=== PATIENT | male | born 1955 | race Caucasian/White ===

== ENCOUNTER → 2017-10-23 08:33 | Outpatient (REF) | payer BC, SELFPAY ==
[2017-10-23 21:32] LABS: ALT 38 U/L (12-78); AST 23 U/L (15-37); Albumin 4.2 g/dL (3.4-5.0); Alkaline Phosphatase 98 U/L (46-116); Anion Gap 11.5 mmol/L (3-11); BUN 20 mg/dL (7-18); Bilirubin, Total 1.2 mg/dL (0.2-1.0); CO2 25.5 mmol/L (21.0-32.0); Calcium 8.7 mg/dL (8.5-10.1); Chloride 106 mmol/L (98-107); Cholesterol 169 mg/dL (50-200); Glucose 93 mg/dL (70-100); HDL Cholesterol 44 mg/dL (40-60); LDL CHOLESTEROL 114 mg/dL (<100); Potassium 4.4 mmol/L (3.5-5.1); Sodium 143 mmol/L (136-145); Triglyceride 92 mg/dL (30-150)
[2017-10-25 08:56] LABS: PSA, Diagnostic 0.4 ng/ml (0-4.5)
== END ==
LOC: NCHCN 08:33
PROVIDERS: PCP Family Medicine; Visit Provider Physician Assistant Medical
DX: Z00.00 Encounter for general adult medical examination without abnormal findings (principal); Z13.228 Encounter for screening for other metabolic disorders; Z13.220 Encounter for screening for lipoid disorders; Z12.5 Encounter for screening for malignant neoplasm of prostate
CPT/HCPCS: 80053; 80061; 83721; 84153

== ENCOUNTER 2017-10-24 06:32 | Emergency (ER) | payer BC, SELFPAY ==
[2017-10-24 06:36] VITALS: BP 155/91; PULSE 76; RESP 18; TEMP 36.9; O2SAT 98
--- NOTE | 2017-10-24 06:47 | DI.RPTCT_ITS ---
SYMPTOM/DIAGNOSIS: LEFT LOWER QUADRANT AND FLANK. NONCONTRAST CT ABDOMEN AND PELVIS: Comparison is made with contrast enhanced exam dated 26 December 2007. There are stable low density liver lesions. Calcified gallstones are noted. There is no gallbladder wall thickening or biliary dilatation. The spleen, adrenals and pancreas are unremarkable. There are bilateral renal cysts. There is nonobstructing stone at the lower pole of the left kidney. There is mild dilatation of the left renal pelvis and left ureter. A 2 mm stone is noted in the dependent portion of the urinary bladder. The prostate is mildly enlarged and contains calcifications. There is a small fatty containing left inguinal hernia. There are diverticula in the sigmoid colon but no evidence of diverticulitis. The appendix appears normal. There is no small bowel dilatation. No free air or free fluid is seen. IMPRESSION: Mild left hydronephrosis. A 2 mm stone has passed in to the bladder.
--- NOTE | 2017-10-24 06:50 | ED.GENADUL_ITS ---
Disposition Clinical Impression: Renal colic on left side Disposition: STILL A PATIENT Medical Decision Making - Lab Data Laboratory Results - last 24 hr 10/24/17 10/24/17 06:55 06:55 WBC 7.23 RBC 4.86 Hgb 14.9 Hct 41.8 MCV 86.0 MCH 30.7 MCHC 35.6 RDW 14.2 H Plt Count 150 MPV 10.0 Immature Gran % 0.6 Neutrophils % 88.1 Lymphocytes % 5.3 Monocytes % 5.1 Eosinophils % 0.6 Basophils % 0.3 Absolute Neutrophils 6.38 Absolute Lymphocytes 0.38 L Absolute Monocytes 0.37 Absolute Eosinophils 0.04 Absolute Basophils 0.02 Sodium 140 Potassium 4.4 Chloride 106 Carbon Dioxide 26.6 Anion Gap 7.4 BUN 20 H Creatinine 0.96 Estimated GFR/1.73 m2 >= 60.00 Glucose 144 H Calcium 8.7 Magnesium 2.1 Total Bilirubin 0.8 AST 24 ALT 37 Alkaline Phosphatase 112 Total Protein 7.6 Albumin 4.2 Results reviewed for labs ordered during visit: Yes - Medical Decision Making 61-year-old male presents with the abrupt onset of colicky left flank and left lower quadrant abdominal pain. He is afebrile and mildly hypertensive, states his pain is improving. Differential diagnosis includes renal colic, bowel obstruction, less likely peritonitis. IV placed and labs obtained, patient offered analgesia which he declined, referred for CT imaging. CBC and comprehensive panel are essentially within normal limits. Urinalysis pending. Given the patient's description of the pain, his current improvement, I am most suspicious for a small distal ureteral calculus. At the time of this dictation , CT images are pending, case will be signed out to Dr. Johnston pending review of data and final disposition. Please see her note. History of Present Illness - General Chief complaint: Abd Prob Stated complaint: ABD PAIN Time Seen by Provider: 10/24/17 06:41 Source: patient, RN notes reviewed Mode of arrival: ambulatory Limitations: no limitations - History of Present Illness Initial comments: Flank pain: 61-year-old male states he was awakened early this morning approximately 1 in the morning with sharp, intermittent episodes of moderate to severe left flank pain that radiated to his groin and seemed to move. He said he had tenesmus but no bowel movements. He did not had notice any change in urine. He did not have a fever. No other exacerbating or ameliorating factors. - Related Data Unknown [No Known Home Meds] 10/24/17 Allergies Allergy/AdvReac Type Severity Reaction Status Date / Time No Known Allergies Allergy Unverified 10/24/17 06:38 Review of Systems Other: 8 systems reviewed, otherwise negative General Exam - General Limitations: no limitations General appearance: alert, in no apparent distress - Head Head exam: Present: atraumatic, normocephalic - Eye Eye exam: Present: PERRL, EOMI - Neck Neck exam: Present: normal inspection, full ROM - Respiratory Respiratory exam: Present: normal lung sounds bilaterally. Absent: respiratory distress - Cardiovascular Cardiovascular Exam: Present: regular rate, normal rhythm - GI/Abdominal GI/Abdominal exam: Present: soft, tenderness, other (Tender left lower quadrant without rebound or guarding) - Extremities Exam Extremities exam: Present: normal inspection - Neurological Exam Neurological exam: Present: alert, oriented X3 - Psychiatric Psychiatric exam: Present: normal affect, normal mood - Skin Skin exam: Present: warm, dry, intact Course Vital Signs - 24 hr 10/24/17 06:36 Temperature 36.9 C Pulse 76 Respiratory 18 Rate Blood Pressure 155/91 Pulse Oximetry 98
[2017-10-24] MEDS: Normal Saline 1,000 ML 150 ML IV (06:55)
[2017-10-24 07:04] LABS: Abs Immature Grans 0.04 k/cumm (0.0-0.09); Absolute Basophil Count 0.02 k/cumm (0.0-0.2); Absolute Eosinophil Count 0.04 k/cumm (0.0-0.7); Absolute Lymphocyte Count 0.38 k/cumm (1.2-3.4); Absolute Monocyte Count 0.37 k/cumm (0.11-0.7); Absolute Neutrophil Count 6.38 k/cumm (1.2-6.7); Basophils % 0.3; Eosinophils % 0.6; HCT 41.8 % (40.0-50.0); HGB 14.9 g/dL (13.5-17.5); Immature Grans % 0.6; Lymphocytes % 5.3; Mean Corp. HGB Concentration 35.6 g/dL (32.0-36.0); Mean Corpuscular Hemoglobin 30.7 pg (27.0-33.0); Monocytes % 5.1; Neutrophils % 88.1; Platelet Count 150 x1000/uL (130-400); RBC 4.86 m/cumm (4.50-6.00); RBC Distribution Width 14.2 % (11.8-14.1); White Blood Cell Count 7.23 k/cumm (4.4-10.8)
[2017-10-24 07:27] LABS: ALT 37 U/L (12-78); AST 24 U/L (15-37); Albumin 4.2 g/dL (3.4-5.0); Alkaline Phosphatase 112 U/L (46-116); Anion Gap 7.4 mmol/L (3-11); BUN 20 mg/dL (7-18); Bilirubin, Total 0.8 mg/dL (0.2-1.0); CO2 26.6 mmol/L (21.0-32.0); CREATININE 0.96 mg/dL (0.70-1.30); Calcium 8.7 mg/dL (8.5-10.1); Chloride 106 mmol/L (98-107); Glucose 144 mg/dL (70-100); Magnesium 2.1 mg/dL (1.8-2.4); Potassium 4.4 mmol/L (3.5-5.1); Sodium 140 mmol/L (136-145); Total Protein 7.6 g/dL (6.4-8.2)
[2017-10-24 07:42] LABS: Bilirubin Negative (Negative); Blood Moderate (Negative); Clarity Sl Cloudy; Glucose Negative (Negative); Ketones Negative (Negative); Leukocyte Esterase Negative (Negative); Nitrite Negative (Negative); Specific Gravity 1.015 (1.005-1.025); Urobilinogen 0.2 EU/dL (Up TO 0.2); pH 5.5 (5-8)
[2017-10-24 07:59] LABS: Bacteria Rare HPF (Negative); Crystals Few Amorphous HPF (Negative); Epithelial Cells Rare HPF (Negative); Mucus Moderate (Negative); WBC 0-2 HPF (0-5)
[2017-10-24 08:00] LABS: C & S Indicated? No; Casts 0-2 Hyaline LPF (Negative)
--- NOTE | 2017-10-24 08:45 | ED.FU ---
Disposition Clinical Impression: Renal colic on left side, Nephrolithiasis Disposition: HOME Condition: Improving Instructions: Kidney Stones (ED), Renal Colic (ED) Additional Instructions: Drink plenty of fluids. Alternate Tylenol Motrin as needed for pain. Use the strainer to see if you've passed the stone. You were given follow-up information for urologist Dr. Vernon. You should receive a call regarding recommendations for follow-up. Return immediately to the emergency department any worsening or new concerning symptoms. Referrals: Emmanuel Vernon MD [ [facility] STAFF PHYSICIAN] - Medical Decision Making - Lab Data Laboratory Tests 10/24/17 10/24/17 10/24/17 06:55 06:55 07:20 WBC 7.23 RBC 4.86 Hgb 14.9 Hct 41.8 MCV 86.0 MCH 30.7 MCHC 35.6 RDW 14.2 H Plt Count 150 MPV 10.0 Immature Gran % 0.6 Neutrophils % 88.1 Lymphocytes % 5.3 Monocytes % 5.1 Eosinophils % 0.6 Basophils % 0.3 Absolute Neutrophils 6.38 Absolute Lymphocytes 0.38 L Absolute Monocytes 0.37 Absolute Eosinophils 0.04 Absolute Basophils 0.02 Sodium 140 Potassium 4.4 Chloride 106 Carbon Dioxide 26.6 Anion Gap 7.4 BUN 20 H Creatinine 0.96 Estimated GFR/1.73 m2 >= 60.00 Glucose 144 H Calcium 8.7 Magnesium 2.1 Total Bilirubin 0.8 AST 24 ALT 37 Alkaline Phosphatase 112 Total Protein 7.6 Albumin 4.2 Urine Color Yellow Urine Clarity Sl cloudy Urine pH 5.5 Ur Specific [place] 1.015 Urine Protein 30 H Urine Ketones Negative Urine Blood Moderate H Urine Nitrite Negative Urine Bilirubin Negative Urine Urobilinogen 0.2 Ur Leukocyte Esterase Negative Urine RBC 10-20 H Urine WBC 0-2 Ur Epithelial Cells Rare Urine Crystals Few amorphous Urine Bacteria Rare Urine Casts 0-2 hyaline Urine Mucus Moderate Ur Culture Indicated? No Urine Glucose Negative - Radiology Data Radiology results: report reviewed, image reviewed CT abdomen and pelvis without IV contrast: 2 mm stone in the bladder with mild left hydronephrosis. - Medical Decision Making Please see Dr. Williamson's note for initial presentation, exam and plan. 61-year-old male with no past medical history presented with left lower quadrant pain and nausea and vomiting. Labs reviewed and notes 10-[address] pending. 929 --CT notes a 2 mm stone in the bladder with mild left hydronephrosis consistent with recently passed stone from ureter. Patient admits to mild left lower quadrant pain but states it is much improved. Patient feels good to go home. We will send home with strainer. Patient declines pain medication. Instructed to take Tylenol or Motrin, drink plenty of fluids. Will give follow-up for Dr. Vernon for follow-up as directed. Instructed to return with any concerns. Care Signed Out By:: Dr. Williamson - Vital Signs Recent Vitals - 8H: Vital Signs - 8 hr 10/24/17 06:36 Temperature 98.4 F Pulse 76 Respiratory 18 Rate Blood Pressure 155/91 Pulse Oximetry 98 - Continuation of Care Continuation of Care Plan: Case endorsed to follow-up on labs and imaging.
[2017-10-24 10:04] VITALS: BP 115/60; PULSE 60; RESP 15; TEMP 36.7; O2SAT 97
[2017-10-24 10:10] VITALS: BP 115/60; PULSE 60; RESP 15; TEMP 36.7; O2SAT 97
--- NOTE | 2017-10-25 14:18 | PDOC.ERCMPRO ---
Care Management Progress Note 10/25/17-Pt seen on 10/24/17 for nephrolithiasis and renal colic on left side by Dr. Demetri Johnston. Request for f/u at Dr. Vernon's discretion faxed to his office.
== END 2017-10-24 10:10 | disposition home or self-care (01) ==
PROVIDERS: Emergency Medicine; Emergency Provider Physician Assistant; PCP Physician Assistant Medical
DX: N23 Unspecified renal colic (principal); N13.2 Hydronephrosis with renal and ureteral calculous obstruction; R10.32 Left lower quadrant pain
CPT/HCPCS: 36415; 80053; 96360; 96361; 99284; 74176; 81003; 81015; 83735; 85025

== ENCOUNTER 2017-11-27 00:27 | Outpatient (CLI) | payer BC, SELFPAY ==
--- NOTE | 2017-11-27 14:25 | DI.US_ITS ---
SYMPTOMS/DIAGNOSIS: RIGHT TESTICULAR PAIN, N50.811 TESTICULAR ULTRASOUND: Routine examination. The right testicle measures 4.2 x 3.1 x 2.7 cm. It is homogeneous with normal blood flow. No intratesticular mass or torsion is present. The right epididymis is normal in size with normal blood flow. There are two epididymal head cysts; the larger measures 2.1 x 1.7 x 1.4 cm, the smaller measures 1.1 x 1 x 0.7 cm. These correspond to the palpable abnormality. The left testicle measures 4.1 x 3.2 x 2.5 cm. It is homogeneous with normal blood flow. No evidence of a torsion or mass is seen. The left epididymis has a normal appearance with normal blood flow. There are two small epididymal head cysts, each measuring 0.2 cm in size. IMPRESSION: 1. Bilateral epididymal head cysts. The largest are on the right as described above. 2. No evidence of an intratesticular mass or torsion.
== END 2017-11-27 00:47 ==
PROVIDERS: PCP Physician Assistant Medical; Visit Provider Nurse Practitioner Gerontology
DX: N50.811 Right testicular pain (principal); N50.3 Cyst of epididymis
CPT/HCPCS: 76870

== ENCOUNTER 2018-08-26 00:45 | Outpatient (CLI) | payer BC, SELFPAY ==
--- NOTE | 2018-08-26 07:26 | DI.US_ITS ---
SYMPTOM/DIAGNOSIS: UMBILICAL HERNIA, K42.9 HERNIA ULTRASOUND: Limited ultrasound was performed to evaluate suspected ventral hernia in the supraumbilical region. Ultrasound confirms supraumbilical ventral hernia measuring up to about 2 cm. in diameter, this contains a small quantity of fluid, there appears to be fat in the hernia sac and the possibility of small bowel present in the hernia sac is raised although not absolutely confirmed. CONCLUSION: Small supraumbilical ventral hernia, question bowel involvement, small quantity of fluid could represent inflammatory process. Strangulated hernia not excluded and correlation with abdominal and pelvic CT is recommended.
== END 2018-08-26 01:05 ==
PROVIDERS: PCP Physician Assistant Medical; Visit Provider Nurse Practitioner Family
DX: K43.9 Ventral hernia without obstruction or gangrene (principal)
CPT/HCPCS: 76857

== ENCOUNTER 2018-09-03 00:54 | Outpatient (CLI) | payer BC, SELFPAY ==
[2018-09-03 10:01] LABS: CREATININE 0.76 mg/dL (0.70-1.30)
--- NOTE | 2018-09-03 11:00 | DI.CT_ITS ---
SYMPTOMS/DIAGNOSIS: UMBILICAL HERNIA NOTED ON US, K42.9 CT SCAN OF THE ABDOMEN AND PELVIS: CT scan of the abdomen and pelvis was performed following the uneventful administration of intravenous and oral contrast material. Comparison is 10/24/17. Mild dependent atelectatic changes are seen in the lung bases. The liver is normal in size. There are hypodense lesions seen within the liver likely reflecting cysts but are too small for further characterization. Portal, superior mesenteric and splenic veins are patent. There are multiple stones seen within the gallbladder. No biliary ductal dilatation is present. The pancreas, spleen and adrenal glands are unremarkable. The kidneys show normal and symmetrical enhancement. There are bilateral renal cysts. There is a 2 mm nonobstructing stone in the lower pole of the left kidney. The urinary bladder is intact. No stones are seen. The reproductive organs are grossly unremarkable. The abdominal aorta is of normal caliber. No aneurysmal dilatation is present. No significant abdominal or pelvic adenopathy, ascites or pneumoperitoneum is present. There is diverticulosis seen in the colon but no evidence of acute diverticulitis. The bowel shows no evidence of obstruction or inflammation. There is a normal appendix present. Note is made of a small fat containing umbilical hernia. Degenerative changes are seen in the spine. IMPRESSION: 1. Small fat containing umbilical hernia. 2. Cholelithiasis. 3. Colonic diverticulosis. 4. Left nephrolithiasis. Bilateral renal cysts.
[2018-09-03] MEDS: Omnipaque 350 MG/ML 50 ML BTL PO (11:02)
[2018-09-03] MEDS: Breeza Beverage 473 ML BTL PO (11:02)
[2018-09-03] MEDS: Omnipaque 350 MG/ML 100 ML BTL IJ (11:02)
== END 2018-09-03 01:14 ==
PROVIDERS: PCP Physician Assistant Medical; Visit Provider Nurse Practitioner Family
DX: K42.9 Umbilical hernia without obstruction or gangrene (principal); K80.20 Calculus of gallbladder without cholecystitis without obstruction; K57.30 Diverticulosis of large intestine without perforation or abscess without bleeding; N20.0 Calculus of kidney; M51.16 Intervertebral disc disorders with radiculopathy, lumbar region; N28.1 Cyst of kidney, acquired
CPT/HCPCS: 74177; 82565; J3490; Q9967

== ENCOUNTER 2018-09-10 06:07 | Day surgery (SDC) | payer BC, SELFPAY ==
[2018-09-10] VITALS (7 sets, daily range): BP systolic 110–135; BP diastolic 60–81; PULSE 49–54; RESP 11–19; TEMP 36.2–36.7; O2SAT 95–100
--- NOTE | 2018-09-10 06:33 | ROE_ITS ---
Date of service: 09/10/18 Time of Service: 07:49 Operative Note DATE OF PROCEDURE: 09/10/18 PRE-OP DIAGNOSIS: Umbilical Hernia POST-OP DIAGNOSIS: same PROCEDURE: Primary Umbilical Hernia repair SURGEON: Cynthia Preston ANESTHESIA: regional and other (General with LMA/ ASA 2/ Aaron Rangel, ARISTIDES) ESTIMATED BLOOD LOSS: 3 PATHOLOGY: none sent COMPLICATIONS: None Patient was transported to: PACU Patient's condition: stable Indications: Mr. Boyer is a pleasant 62 year old male seen in the office for an umbilical hernia that has started to bother him. Risks, benefits, complications were reviewed with the patient. Complications include but are not limited to bleeding, infection, seroma, hematoma, recurrence, wound dehiscence and adverse reaction to the medications. Questions were entertained and answered to his satisfaction and he wished to proceed. No guarantees were given or implied. Findings: Small 0.5 cm hernia with some preperitoneal fat Procedure Description: After informed consent was obtained the patient was taken to the operating room and placed in a supine position. Monitors and SCDs were applied and a timeout was done. The patient's name, date of , procedure type, procedure site, allergies to medications, preoperative antibiotic, and DVT prophylaxis were all reviewed. Fire risk was assessed. Next anesthesia did a bilateral rectus block under ultrasound guidance. Please see their separate dictation. Once anesthesia was done the abdomen was prepped and draped in a sterile surgical fashion. 0.5% Bupivacaine was injected into the dermis just under the umbilicus. An incision was made with a 15 blade under the umbilicus. Dissection was done with cautery through the subcutaneous tissues and through the umbilical stalk down to the fascia. The hernia defect was identified and measured 5 mm. The pre-peritoneal fat was re-sected. The hernia was too small for a mesh. The fascia was grasped on either side and closed with a 0 Vicryl suture. The wound was irrigated and no bleeding was identified. 0 Vicryl was used to secure the umbilicus down to the fascia. The subcutaneous tissue was re- approximated with 2-0 vicryl. The dermis was re-approximated with a running 4-0 Vicryl. The skin was cleaned and dried and skin affix was applied. The patient was woken up and taken back to [facility] in stable condition. There were no immediate complications. Sponge, instrument and needle counts were correct at the end of the case x2.
--- NOTE | 2018-09-10 06:33 | W.PM.DSUDISC ---
Discharge Plan Disposition Patient Disposition: HOME Condition: Good Discharge Details Reason For Visit: Umbilical hernia Attending Provider: Cynthia Preston Primary Care Provider: Eliane Yates Home Meds and New Rx's Prescriptions: New acetaminophen [Tylenol] 325 mg capsule 650 mg PO Q6H PRN (Reason: fever or pain) Qty: 30 RF: 0 Continued bisacodyl [Dulcolax (bisacodyl)] 5 mg tablet,delayed release (DR/EC) 5 mg PO ONCE Qty: 4 RF: 0 polyethylene glycol 3350 17 gram powder in packet 255 g PO DAILY Qty: 15 RF: 0 ibuprofen 200 mg Tablet 400 mg PO PRN PRNRF: 0 Discharge Instructions Instructions: Open Herniorrhaphy (DC) Additional Instructions: Activity at Home after surgery: 1. Make sure you walk outside at least 4 times per day 2. You should be able to climb a flight of stairs 3. No driving while in pain or taking pain medications 4. No strenuous activity or heavy lifting for 4 weeks (open surgery) Diet, Nutrition, & wound healin. Avoid alcohol until after you are recovered from your surgery 2. Make sure to eat plenty of lean protein (meat, fish, eggs, cottage cheese, beans) 3. Eat a variety of fruits and vegetables. Eat plenty of high fiber foods to avoid constipation. 4. Drink plenty of liquids to stay hydrated and avoid constipation Pain Medications: 1. Alternate Tylenol 650 mg and Ibuprofen 600 mg every 3 hours 2. If a narcotic has been prescribed take as directed only for breakthrough pain For Constipation: 1. Take Milk of Magnesia or MiraLax as needed for constipation Other: 1. You may shower daily. Do not scrub the incisions 2. Do not soak the incisions for 1 week 3. You may alternate ice and heat as needed for pain and swelling Wound Care: 1. Keep the incisions clean and dry Please call our office if you develop: 1. Fevers >101.5 2. Nausea or Vomiting 3. Worsening pain 4. Redness and thick discharge from the wounds If after hours please call the Hospital at and ask to speak to the on-call surgeon Stand Alone Forms: Anes.Nerve Block Instructions, DSU Post op Instructions, Press Nelli (DSU) Referrals: Cynthia Preston MD [ [facility] STAFF PHYSICIAN] - 09/23/18 1:45 pm Activity:: No lifting >20lb Diet:: As Tolerated Discharge Orders Discharge Orders: Discharge Order (Routine); Ordered 09/10/18 Ordered By: Cynthia Preston DS: Diagnosis Discharge Diagnosis (1) Umbilical hernia: Status: Acute (2) History of ventral hernia repair: Status: Acute
--- NOTE | 2018-09-10 06:37 | PDOC.DSDIS_ITS ---
Discharge Plan Disposition Patient Disposition: HOME Condition: Good Discharge Details Reason For Visit: Umbilical hernia Attending Provider: Cynthia Preston Primary Care Provider: Eliane Yates Home Meds and New Rx's Prescriptions: New acetaminophen [Tylenol] 325 mg capsule 650 mg PO Q6H PRN (Reason: fever or pain) Qty: 30 RF: 0 Continued bisacodyl [Dulcolax (bisacodyl)] 5 mg tablet,delayed release (DR/EC) 5 mg PO ONCE Qty: 4 RF: 0 polyethylene glycol 3350 17 gram powder in packet 255 g PO DAILY Qty: 15 RF: 0 ibuprofen 200 mg Tablet 400 mg PO PRN PRNRF: 0 Discharge Instructions Instructions: Open Herniorrhaphy (DC) Additional Instructions: Activity at Home after surgery: 1. Make sure you walk outside at least 4 times per day 2. You should be able to climb a flight of stairs 3. No driving while in pain or taking pain medications 4. No strenuous activity or heavy lifting for 4 weeks (open surgery) Diet, Nutrition, & wound healin. Avoid alcohol until after you are recovered from your surgery 2. Make sure to eat plenty of lean protein (meat, fish, eggs, cottage cheese, beans) 3. Eat a variety of fruits and vegetables. Eat plenty of high fiber foods to avoid constipation. 4. Drink plenty of liquids to stay hydrated and avoid constipation Pain Medications: 1. Alternate Tylenol 650 mg and Ibuprofen 600 mg every 3 hours 2. If a narcotic has been prescribed take as directed only for breakthrough pain For Constipation: 1. Take Milk of Magnesia or MiraLax as needed for constipation Other: 1. You may shower daily. Do not scrub the incisions 2. Do not soak the incisions for 1 week 3. You may alternate ice and heat as needed for pain and swelling Wound Care: 1. Keep the incisions clean and dry Please call our office if you develop: 1. Fevers >101.5 2. Nausea or Vomiting 3. Worsening pain 4. Redness and thick discharge from the wounds If after hours please call the Hospital at and ask to speak to the on-call surgeon Stand Alone Forms: Anes.Nerve Block Instructions, DSU Post op Instructions, Press Nelli (DSU) Referrals: Cynthia Preston MD [ [facility] STAFF PHYSICIAN] - 09/23/18 1:45 pm Activity:: No lifting >20lb Diet:: As Tolerated Discharge Orders Discharge Orders: Discharge Order (Routine); Ordered 09/10/18 Ordered By: Cynthia Preston DS: Diagnosis Discharge Diagnosis (1) Umbilical hernia: Status: Acute (2) History of ventral hernia repair: Status: Acute
[2018-09-10] MEDS: Lactated Ringers 1,000 ML 80 ML IV (06:50)
[2018-09-10] MEDS: Bupivacaine 0.25% Pres-Free 30 ML VIAL ×2 (07:33→07:48)
[2018-09-10] MEDS: ceFAZolin 2 GM/50 ML BAG IVPB (07:39)
== END 2018-09-10 10:00 | disposition home or self-care (01) ==
PROVIDERS: PCP Physician Assistant Medical; Visit Provider Surgery
PROC: (CPT 49585; principal; 2018-09-10 07:30)
DX: K42.9 Umbilical hernia without obstruction or gangrene (principal)
CPT/HCPCS: 49585; 76942; J0690; J1100; J1200; J1885; J2250; J2405; J3010

== ENCOUNTER 2018-09-15 09:10 | Day surgery (SDC) | payer BC, SELFPAY ==
--- NOTE | 2018-09-15 06:50 | W.COLOREPORT ---
Date of service: 09/15/18 Time of Service: 10:28 Colonoscopy Report Date of procedure: 09/15/18 Pre-op diagnosis general: Colon Cancer Screening Post-op diagnosis procedure note: other (Mild Lee-diverticulosis) Procedure: Colonoscopy Surgeon: Cynthia Preston Anesthesia proc note operative: other (General/ASA 2/ Easton Carlos CRNA) Estimated blood loss (mL): 0 Pathology: none sent Complications: None Disposition: same day Indications: Mr. Boyer is a pleasant 62 year old male who was seen in the office for a screening colonoscopy. His last Colonoscopy was in 2005 and was normal. Risks, benefits and complications have been reviewed. Complications include but are not limited to bleeding, pain, perforation, missed small lesion/polyp, sore throat, aspiration and adverse reaction to the medications. Questions were entertained and answered to their satisfaction and they wished to proceed. No guarantees were given or implied. Prep: Miralax/Dulcolax Procedure Start Time: 10:28 Procedure End Time: 10:51 Retraction Time: 18 minutes Findings: Mild lee-diverticulosis Procedure Description: After informed consent was obtained the patient was taken to the procedure room and placed in a left decubitous position. Monitors were applied and a time out was done. The patients name, date of , procedure, allergies to medications and metal in their body was reviewed. The patient was then sedated. Once sedated and comfortable a rectal exam was done. External exam was normal. Internal exam revealed a normal sphincter tone and no palpable masses. The prostate felt smooth. The scope was then introduced and retro-flexed. No internal hemorrhoids were identified. There were no rectal masses or polyps. The scope was then advanced to the cecum without difficulty. The TI and appendiceal orifice were identified. The prep was adequate. The scope was then slowly retracted over 18 minutes back into the rectum. There were no polyps. There was mild diverticulosis noted of the entire bowel. The scope was removed and the patient was woken up and taken back to Same day surgery in stable condition. The patient tolerated the procedure well and there were no immediate complications. Follow up: The patient should follow up in 10 years unless they develop changes in bowel habits or other new gastrointestinal complaints.
--- NOTE | 2018-09-15 06:53 | W.PM.DSUDISC ---
Discharge Plan Disposition Patient Disposition: HOME Condition: Good Discharge Details Reason For Visit: Colonoscopy Attending Provider: Cynthia Preston Primary Care Provider: Eliane Yates Home Meds and New Rx's Prescriptions: Continued ibuprofen 200 mg Tablet 400 mg PO PRN PRNRF: 0 acetaminophen [Tylenol] 325 mg capsule 650 mg PO Q6H PRN (Reason: fever or pain) Qty: 30 RF: 0 Discontinued bisacodyl [Dulcolax (bisacodyl)] 5 mg tablet,delayed release (DR/EC) 5 mg PO ONCE Qty: 4 RF: 0 polyethylene glycol 3350 17 gram powder in packet 255 g PO DAILY Qty: 15 RF: 0 Discharge Instructions Instructions: Colonoscopy (DC), Diverticulosis (DC) Additional Instructions: Findings: mild diverticulosis Follow up: 10 years Please call if you develop: fevers >101.5 Nausea or Vomiting Abdominal pain that is not transient DAY SURGERY UNIT POST COLONOSCOPY INSTRUCTIONS 1. Because there will be medication in your system for the next 24 hours, you may feel a little sleepy. Your coordination will be affected. Therefore: a. Do not drive or operate dangerous equipment for 24 hours. b. Do not drink alcohol beverages for 24 hours (not even beer). c. Plan to go home and rest for the day. 2. Generally there are no restrictions on your activity after a day or so has gone by, but you may feel a bit fatigued for a few days. 3 After you arrive home you may have a light meal and return to a normal diet as you can tolerate it without feeling sick to your stomach. 4. After surgery, you may feel pain or discomfort. This should be only transient, but if it persists please contact your doctor. 5. If there are any questions regarding the findings of your procedure, please feel free to contact your doctor. 6. If you are unable to contact your doctor with a problem, contact the hospital at [phone]. 7. Continue all your regular medications unless directed otherwise. I understand the above instructions and have no questions. Signature of Patient or Responsible Adult Escort Date/Time Name of Responsible Adult Escort Signature of Nurse Date/Time Activity:: Activity as Tolerated Diet:: High Fiber diet Discharge Orders Discharge Orders: Discharge Order (Routine); Ordered 09/15/18 Ordered By: Cynthia Preston DS: Diagnosis Discharge Diagnosis (1) S/P colonoscopy: Status: Acute (2) Diverticulosis: Status: Acute
[2018-09-15] MEDS: Lactated Ringers 1,000 ML 80 ML IV (08:00)
[2018-09-15 09:21] VITALS: BP 148/86; PULSE 63; RESP 16; TEMP 36.3; O2SAT 98
[2018-09-15 11:35] VITALS: BP 120/67; PULSE 54; RESP 16; TEMP 35.9; O2SAT 98
== END 2018-09-15 11:50 | disposition home or self-care (01) ==
LOC: SUR 09:10
PROVIDERS: PCP Physician Assistant Medical; Visit Provider Surgery
PROC: 0DJD8ZZ Inspection of Lower Intestinal Tract, Via Natural or Artificial Opening Endoscopic (ICD-10-PCS; CPT 45378; principal; 2018-09-15 10:30)
DX: Z12.11 Encounter for screening for malignant neoplasm of colon (principal); K57.30 Diverticulosis of large intestine without perforation or abscess without bleeding
CPT/HCPCS: 45378

== ENCOUNTER 2018-12-03 08:41 | Outpatient (REF) | payer OTHER, SELFPAY ==
[2018-12-03 20:37] LABS: Calculated LDL 98 mg/dL; Cholesterol 156 mg/dL (50-200); Glucose 88 mg/dL (70-100); HDL Cholesterol 43 mg/dL (40-60); Triglyceride 75 mg/dL (30-150)
== END 2018-12-03 09:01 ==
LOC: NCHCN 08:41
PROVIDERS: PCP Physician Assistant Medical; Visit Provider Nurse Practitioner Family
DX: Z00.00 Encounter for general adult medical examination without abnormal findings (principal); Z13.1 Encounter for screening for diabetes mellitus; Z13.220 Encounter for screening for lipoid disorders
CPT/HCPCS: 80061; 82947

== ENCOUNTER 2019-08-19 01:10 | Outpatient (CLI) | payer OTHER, SELFPAY ==
--- NOTE | 2019-08-19 | DI.US_ITS ---
EXAM: US SCROTUM CLINICAL HISTORY: H/O EPIDIDYMAL CYST, N50.3, INCREASED SCROTAL PAIN. TECHNIQUE: Scrotal ultrasound performed using grayscale, color-flow and spectral Doppler analysis. COMPARISON: US US scrotum from 11/27/2017 US US OR ANESTHESIA from 09/10/2018 FINDINGS: Right testicle: 4 x 2.8 x 2.9 cm Left testicle: 4.4 x 2.5 x 3.4 cm Echogenicity: Normal. Contour: Smooth. Mass: None seen. Microlithiasis: None. Hydrocele: Small bilateral. Variocele: None. Hernia: No peristalsing bowel loop identified. Epididymis: Bilateral epididymal head cysts are noted. The largest is in the right epididymal head measuring 2.4 cm.. DOPPLER: Color: Symmetric and uniform, no hyperemia. Duplex: Bilateral testicular arterial waveforms visualized. IMPRESSION: Bilateral epididymal head cysts, right greater than left. Normal appearing bilateral testicles. DATA REPOSITORY:
== END 2019-08-19 01:30 ==
PROVIDERS: PCP Nurse Practitioner Family; Visit Provider Nurse Practitioner Family
DX: N50.3 Cyst of epididymis (principal); N50.82 Scrotal pain; N43.3 Hydrocele, unspecified
CPT/HCPCS: 76870

== ENCOUNTER 2019-08-19 02:41 | Outpatient (CLI) | payer OTHER, SELFPAY ==
[2019-08-19 09:36] LABS: Abs Immature Grans 0.02 k/cumm (0.0-0.09); Absolute Basophil Count 0.03 k/cumm (0.0-0.2); Absolute Eosinophil Count 0.13 k/cumm (0.0-0.7); Absolute Lymphocyte Count 0.89 k/cumm (1.2-3.4); Absolute Monocyte Count 0.39 k/cumm (0.11-0.7); Absolute Neutrophil Count 2.37 k/cumm (1.2-6.7); Basophils % 0.8; Eosinophils % 3.4; HCT 40.8 % (40.0-50.0); HGB 14.5 g/dL (13.5-17.5); Immature Grans % 0.5 %; Lymphocytes % 23.2; Mean Corp. HGB Concentration 35.5 g/dL (32.0-36.0); Mean Corpuscular Hemoglobin 30.2 pg (27.0-33.0); Monocytes % 10.2; Neutrophils % 61.9; Platelet Count 179 x1000/uL (130-400); RBC Distribution Width 14.5 % (11.8-14.1); White Blood Cell Count 3.83 k/cumm (4.4-10.8)
[2019-08-19 10:44] LABS: Anion Gap 8.2 mmol/L (3-11); BUN 23 mg/dL (7-18); CO2 26.8 mmol/L (21.0-32.0); CREATININE 0.75 mg/dL (0.70-1.30); Calcium 8.8 mg/dL (8.5-10.1); Chloride 104 mmol/L (98-107); Glucose 94 mg/dL (74-106); PHOSPHORUS 3.2 mg/dL (2.6-4.7); Potassium 4.3 mmol/L (3.5-5.1); Sodium 139 mmol/L (136-145); Uric Acid 5.3 mg/dL (3.5-7.2)
[2019-08-19 11:04] LABS: COMMENT (LAB VIEW ONLY) 159.23 mg/dL; PROTEIN 11.1 mg/dL; Prot/Crea Ur Ratio 0.06
[2019-08-19 11:07] LABS: COMMENT (LAB VIEW ONLY) 159.77 mg/dL; Microalb ug/mg Crea 7.8 ug/mg Cr
[2019-08-20 14:42] LABS: Vitamin D 25 Total 34.1 ng/ml (30-100)
[2019-08-25 14:22] LABS: PTH-Related Peptide <0.4 pmol/L (< or = 4.2)
== END 2019-08-19 03:01 ==
PROVIDERS: PCP Nurse Practitioner Family; Visit Provider Internal Medicine
DX: N20.0 Calculus of kidney (principal)
CPT/HCPCS: 36415; 80048; 82306; 82043; 82397; 82565; 82570; 84100; 84156; 84550; 85025

== ENCOUNTER 2019-09-01 02:45 | Outpatient (CLI) | payer OTHER, SELFPAY ==
--- NOTE | 2019-09-01 | DI.US_ITS ---
EXAM: US RENAL CLINICAL HISTORY: SURVEILLANCE OF CYSTIC DISEASE, BILAT KIDNEYS,N28.1. TECHNIQUE: Chamorro scale, color and spectral Doppler were used. COMPARISON: CT CT ABDOMEN PELVIS W from 09/03/2018 FINDINGS: Renal size in cm: Right: 11.3 left: 13.4 Echogenicity: Normal. Hydronephrosis: No. Cyst or mass: Bilateral simple renal cysts are present. The largest is in the superior pole of the l eft kidney and measures 3.1 x 2.1 x 3.0 cm. Nephrolithiasis: 4 mm echogenic focus in the lower pole of the left kidney suspicious for nonobstruct ing stone. Other findings: Multiple stones within the gallbladder. No gallbladder wall thickening or pericholec ystic fluid is seen. There was a negative sonographic Hester sign. Bladder:Normal. Ureteral jets: Right: Visualized and unremarkable. Left: Visualized and unremarkable. Prevoid vol:52 cc Postvoid vol:26 cc Prostate: 7 cc DOPPLER FINDINGS: Normal and symmetric blood flow to the kidneys. IMPRESSION: 1. Stable bilateral simple renal cysts. 2. Left nephrolithiasis. 3. Cholelithiasis. DATA REPOSITORY:
== END 2019-09-01 03:05 ==
PROVIDERS: PCP Nurse Practitioner Family; Visit Provider Internal Medicine
DX: N28.1 Cyst of kidney, acquired (principal); N20.0 Calculus of kidney; K80.20 Calculus of gallbladder without cholecystitis without obstruction
CPT/HCPCS: 76770

== ENCOUNTER 2019-09-11 07:56 | Outpatient (CLI) | payer OTHER, SELFPAY ==
[2019-09-12 02:46] LABS: COVID-19 RT-PCR UVMMC Result Negative (Negative)
== END 2019-09-11 08:16 ==
PROVIDERS: PCP Nurse Practitioner Family; Visit Provider Urology
DX: Z03.818 Encounter for observation for suspected exposure to other biological agents ruled out (principal)
CPT/HCPCS: U0003

== ENCOUNTER 2019-09-14 12:27 | Day surgery (SDC) | payer OTHER, SELFPAY ==
--- NOTE | 2019-09-14 06:58 | HPE_ITS ---
Assessment and Plan Assessment and plan (1) Spermatocele of epididymis, multiple: Status: Acute Assessment and plan: We will move forward with a right spermatocele ectomy History of Present Illness History of Present Illness Chief Complaint: Spermatocele Narrative: This is a 63-year-old gentleman who has been found to have multiple cysts on his kidneys, liver and epididymis. He currently has right sided scrotal discomfort. He tells me that the discomfort can be positional and seems to be related to direct pressure on 1 of the right sided scrotal masses. He has not noticed any overlying skin changes. He has not had any specific trauma to the site. He has no dysuria, gross hematuria or urethral discharge. He has never had any type of scrotal surgery. He has had a right inguinal hernia repair previously. On prior evaluation, the spermatocele was not bothersome enough that he wanted to pursue treatment. At this time, however, he is interested in moving forward with definitive therapy. He has no known bleeding disorders. He has had no adverse reaction to anesthetics. Review of Systems Narrative: No fevers or chills No vision change or dysphasia No diabetes or thyroid No shortness of breath, cough or hemoptysis No chest pain or palpitations No nausea, vomiting, hepatitis, ulcers, jaundice, diarrhea or constipation No seizures, strokes or peripheral neuropathy No bleeding disorders or anemia No gout PFSH Social History Smoking/Tobacco Use Status: Never Alcohol Intake: never Substance use type: does not use Special abe needs: No Do you feel safe at home: Yes Do you feel safe in your relationship?: Yes Additional Social history: Bill, significant other Meds Home Medications and Allergies Home Medications Medication Instructions Recorded Confirmed Type acetaminophen [Tylenol] 650 mg PO Q6H PRN #30 cap 09/10/18 09/14/19 Rx ibuprofen 400 mg PO PRN PRN 09/10/18 09/14/19 History Allergies Allergy/AdvReac Type Severity Reaction Status Date / Time levofloxacin Allergy Severe Verified 09/10/19 11:57 [facility] Soap AdvReac Hives Uncoded 09/14/19 13:05 Exam Narrative Exam Narrative: He is in no current distress. He is cooperative. His vital signs are documented elsewhere His neck is supple with no mass His lungs are clear Cardiac exam shows a regular rate and rhythm His abdomen is soft with no mass The testes themselves are soft with no mass but there is a right sided scrotal mass separate from the testis. This mass transilluminates and has no overlying erythema or ecchymosis He is awake and alert COVID-19 Screening In the past 14 days, have you traveled outside of [place]?: NO
[2019-09-14 13:08] VITALS: BP 120/78; PULSE 75; RESP 16; TEMP 36.2; O2SAT 97
[2019-09-14] MEDS: Lactated Ringers 1,000 ML 80 ML IV (13:25)
[2019-09-14] MEDS: ceFAZolin 1 GM/50 ML BAG IVPB (16:16)
[2019-09-14] MEDS: Bupivacaine 0.25% Pres-Free 30 ML VIAL (16:16)
--- NOTE | 2019-09-14 16:33 | SPERMATO_PTH ---
PATIENT: Kirby Boyer LOC: [facility] U#:[id number] AGE/SX: 63/M ROOM: RE09/14/[address]: Emmanuel Vernon MD : [id number] BED: DIS: 09/14/2019 SPEC #: [id number] RECD: 09/14/19 17:26 STATUS: MACK REQ #: [id number] SERGIO: 09/14/19 16:[address]: Emmanuel Vernon DEPT: Surgical Specimen RECD BY: Dominique Casiano ENTERED: 09/14/19 17:27 SP TYPE: SPERMATO OTHR DR: Fifi Whitman Tissues: 1 - SPERMATOCELE Procedures: GROSS AND MICRO LEVEL 3 Comments: [id number]
--- NOTE | 2019-09-14 16:43 | W.PM.DSUDISC ---
Discharge Plan Disposition Patient Disposition: HOME Condition: Stable Discharge Details Reason For Visit: spermatocele Attending Provider: Emmanuel Vernon Primary Care Provider: Fifi Whitman Home Meds and New Rx's Prescriptions: New tramadol 50 mg tablet 50 mg PO Q6H PRN (Reason: pain) Qty: 20 RF: 0 No Action ibuprofen 200 mg Tablet 400 mg PO PRN PRNRF: 0 acetaminophen [Tylenol] 325 mg capsule 650 mg PO Q6H PRN (Reason: fever or pain) Qty: 30 RF: 0 Discharge Instructions Additional Instructions: Followup 1 to 2 weeks Ice pack to scrotum (bag of frozen peas works well) May shower and remove fluff dressing in AM Activity:: no lifting over 10 to 20 pounds until followup visit Remove Dressings/Wound Care:: 24 hours Shower/Bathe:: 24 hours Discharge Orders Discharge Orders: Discharge Order (Routine); Ordered 09/14/19 Ordered By: Emmanuel Vernon DS: Diagnosis Discharge Diagnosis (1) Spermatocele of epididymis, multiple: Status: Acute
[2019-09-14 16:56] VITALS: BP 121/52; PULSE 65; RESP 17; TEMP 36.5; O2SAT 97
[2019-09-14 17:01] VITALS: BP 114/60; PULSE 67; RESP 20; TEMP 36.5; O2SAT 97
[2019-09-14 17:06] VITALS: BP 134/72; PULSE 71; RESP 20; TEMP 36.5; O2SAT 97
[2019-09-14 17:20] VITALS: BP 127/71; PULSE 67; RESP 12; TEMP 36.7; O2SAT 98
--- NOTE | 2019-09-14 17:42 | W.PM.OP ---
Date of service: 09/14/19 Time of Service: 17:42 Operative Note Operative Note DATE OF PROCEDURE: 09/14/19 PRE-OP DIAGNOSIS: Right spermatocele POST-OP DIAGNOSIS: same PROCEDURE: Right spermatocele ectomy SURGEON: Emmanuel Vernon ASSISTING SURGEON: Elisabeth Moncada ANESTHESIA: GETA ESTIMATED BLOOD LOSS: 25 PATHOLOGY: other (Spermatocele) COMPLICATIONS: None Patient was transported to: PACU Patient's condition: stable Indications: This is a 63-year-old gentleman who has a history of multiple cystic lesions on the epididymis. The lesions have been present for years, but more recently, his right-sided lesions have become symptomatic. He presents for spermatocele ectomy. Procedure Description: The patient was brought to the operating room on 09/14/2019. After successful induction of general anesthesia he is placed in the supine position. His genitalia is prepped and draped sterilely. A right transverse scrotal incision was made and extended down through the dartos muscle. The right testis was then delivered through the incision. The surrounding fibrous tissue was dissected free from the anterior aspect of the tunica vaginalis using sharp and blunt dissection. The tunica was then opened anteriorly and the testis was inspected. The testis appeared normal but there was a multicystic lesion attached to the right epididymis. Using sharp and blunt dissection we dissected the cystic lesions free. After they were excised, they were sent to pathology for permanent section. The points of attachment were then cauterized for hemostasis. The tunica vaginalis was reapproximated behind the testis using a simple interrupted 3-0 chromic suture. A spermatic cord block was performed using quarter percent Marcaine. The testis was then delivered back within the right hemiscrotum. The dartos was closed with a running 3-0 chromic suture. The skin was closed with simple interrupted 3-0 chromic followed by Dermabond. A fluff dressing and a scrotal support were then applied. He tolerated this procedure well with no complications.
[2019-09-14 18:10] VITALS: BP 133/78; PULSE 61; RESP 18; TEMP 36.3; O2SAT 99
== END 2019-09-14 18:57 | disposition home or self-care (01) ==
PROVIDERS: PCP Nurse Practitioner Family; Visit Provider Urology
PROC: (CPT 54840; principal; 2019-09-14 14:15)
DX: N43.42 Spermatocele of epididymis, multiple (principal)
CPT/HCPCS: 54840; NC; 88304; J0690; J2001; J2704

== ENCOUNTER 2020-05-30 01:25 | Outpatient (CLI) | payer BC, SELFPAY ==
--- NOTE | 2020-05-30 | DI.RAD_ITS ---
EXAM: XR SHOULDER RT COMPLETE 2+V CLINICAL HISTORY: RT SHOULDER PAIN, M25.511,H/O OLD FALL, ? OA. TECHNIQUE: 2D digital imaging was performed. COMPARISON: No exams were available for comparison FINDINGS: BONES: No acute fracture is present. No old fracture deformity. No bony destructive lesion is seen. JOINTS: No dislocation present. Minimal degenerative changes at the AC joint and glenohumeral joint . SOFT TISSUE: Normal. IMPRESSION: Mild degenerative changes.. DATA REPOSITORY: RADIATION DOSE DELIVERED:
== END 2020-05-30 01:45 ==
PROVIDERS: PCP Nurse Practitioner Family; Visit Provider Nurse Practitioner Family
DX: M19.011 Primary osteoarthritis, right shoulder (principal)
CPT/HCPCS: 73030

== ENCOUNTER 2020-09-12 10:27 | Outpatient (REF) | payer BC, SELFPAY ==
[2020-09-12 16:05] LABS: Calculated LDL 94 mg/dL (<100); Cholesterol 152 mg/dL (<200); Glucose 84 mg/dL (74-106); HDL Cholesterol 48 mg/dL (40-60); Triglyceride 51 mg/dL (<150)
[2020-09-12 22:27] LABS: PSA, Screening 0.3 ng/mL (0.0-4.5)
== END 2020-09-12 10:28 | disposition home or self-care (01) ==
LOC: NCHCN 10:27
PROVIDERS: PCP Nurse Practitioner Family; Visit Provider Nurse Practitioner Family
DX: Z00.00 Encounter for general adult medical examination without abnormal findings (principal); Z13.1 Encounter for screening for diabetes mellitus; Z12.5 Encounter for screening for malignant neoplasm of prostate; Z80.42 Family history of malignant neoplasm of prostate; Z13.220 Encounter for screening for lipoid disorders
CPT/HCPCS: 80061; 82947; 84153

== ENCOUNTER 2021-09-27 17:21 | Outpatient (REF) | payer OTHER, SELFPAY ==
[2021-09-27 15:38] LABS: Calculated LDL 93 mg/dL (<100); Cholesterol 152 mg/dL (<200); Glucose 91 mg/dL (74-106); HDL Cholesterol 46 mg/dL (40-60); Triglyceride 65 mg/dL (<150)
[2021-09-27 22:37] LABS: PSA, Screening 0.4 ng/mL (<=4.5)
== END 2021-09-27 17:22 | disposition home or self-care (01) ==
LOC: NCHCN 17:21
PROVIDERS: PCP Nurse Practitioner Family; Visit Provider Nurse Practitioner Family
DX: Z00.00 Encounter for general adult medical examination without abnormal findings (principal); R03.0 Elevated blood-pressure reading, without diagnosis of hypertension; Z77.011 Contact with and (suspected) exposure to lead; Z80.42 Family history of malignant neoplasm of prostate; Z13.1 Encounter for screening for diabetes mellitus; Z12.5 Encounter for screening for malignant neoplasm of prostate; Z13.220 Encounter for screening for lipoid disorders
CPT/HCPCS: 80061; 82947; 84153; 83655

== ENCOUNTER 2021-12-18 09:20 | Outpatient (REF) | payer OTHER, SELFPAY ==
[2021-12-18 16:22] LABS: Calculated LDL 100 mg/dL (<100); Cholesterol 163 mg/dL (<200); HDL Cholesterol 46 mg/dL (40-60); Triglyceride 87 mg/dL (<150)
== END 2021-12-18 09:21 | disposition home or self-care (01) ==
LOC: NCHCN 09:20
PROVIDERS: PCP Nurse Practitioner Family; Visit Provider Nurse Practitioner Family
DX: Z13.220 Encounter for screening for lipoid disorders (principal); Z77.011 Contact with and (suspected) exposure to lead
CPT/HCPCS: 80061; 83655

== ENCOUNTER 2022-03-21 02:38 | Outpatient (CLI) | payer OTHER, SELFPAY | END 2022-03-21 02:39 | disposition home or self-care (01) | LOC: LBO 02:38 | PROVIDERS: PCP Nurse Practitioner Family; Visit Provider Nurse Practitioner Family | DX: Z77.011 Contact with and (suspected) exposure to lead (principal) | CPT/HCPCS: 36415; 83655 ==

== ENCOUNTER 2023-11-27 18:35 | Outpatient (REF) | payer OTHER, SELFPAY ==
[2023-11-27 21:26] LABS: Abs Immature Grans 0.04 10^3/uL (0.0-0.06); Absolute Basophil Count 0.04 10^3/uL (0.0-0.2); Absolute Eosinophil Count 0.08 10^3/uL (0.0-0.7); Absolute Monocyte Count 0.65 10^3/uL (0.1-0.8); Basophils % 0.5 %; HCT 40.3 % (40.0-50.0); Immature Grans % 0.5 %; Lymphocytes % 8.8 %; MCH 29.7 pg (27.0-33.0); MCHC 34.7 % (32.0-36.0); MCV 86 fL (80-95); MPV 10.7 fL (8.0-11.0); Monocytes % 8.2 %; Platelet Count 177 10^3/uL (130-400); RBC 4.71 10^6/uL (4.36-5.78); RDW 14.1 % (11.8-14.1); RDW-SD 44.1 fL; WBC 7.91 10^3/uL (4.4-10.8)
[2023-11-27 21:35] LABS: ALT 184 U/L (16-63); AST 180 U/L (15-37); Albumin 4.1 g/dL (3.4-5.0); Alkaline Phosphatase 138 U/L (46-116); Anion Gap 7.2 mmol/L (3-11); BUN 22 mg/dL (7-18); Bilirubin, Total 3.24 mg/dL (0.2-1.0); CO2 26.8 mmol/L (21.0-32.0); CREATININE 0.9 mg/dL (0.70-1.30); Chloride 106 mmol/L (98-107); Estimated GFR 93.03 (mL/min/1.73m2); Glucose 104 mg/dL (74-106); Lipase 46 U/L (16-77); Potassium 4.1 mmol/L (3.5-5.1); Sodium 140 mmol/L (136-145); Total Protein 7.1 g/dL (6.4-8.2)
[2023-11-27 21:40] LABS: Calcium 8.9 mg/dL (8.5-10.1)
== END 2023-11-27 18:36 | disposition home or self-care (01) ==
LOC: LBN 18:35
PROVIDERS: PCP Nurse Practitioner Family; Visit Provider Physician Assistant Medical
DX: R10.11 Right upper quadrant pain (principal)
CPT/HCPCS: 80053; 83690; 85025

== ENCOUNTER 2023-11-29 08:34 | Outpatient (CLI) | payer MEDICARE, SELFPAY ==
[2023-11-29 08:35] LABS: Abs Immature Grans 0.03 10^3/uL (0.0-0.06); Absolute Basophil Count 0.03 10^3/uL (0.0-0.2); Absolute Eosinophil Count 0.08 10^3/uL (0.0-0.7); Absolute Lymphocyte Count 0.96 10^3/uL (1.2-3.4); Absolute Monocyte Count 0.37 10^3/uL (0.1-0.8); Absolute Neutrophil Count 3.11 10^3/uL (1.2-6.7); Basophils % 0.7 %; Eosinophils % 1.7 %; HCT 39.5 % (40.0-50.0); Immature Grans % 0.7 %; MCH 30.1 pg (27.0-33.0); MCHC 35.4 % (32.0-36.0); MCV 85 fL (80-95); MPV 9.9 fL (8.0-11.0); Monocytes % 8.1 %; Neutrophils % 67.8 %; Platelet Count 172 10^3/uL (130-400); RBC 4.65 10^6/uL (4.36-5.78); RDW 14.4 % (11.8-14.1); WBC 4.58 10^3/uL (4.4-10.8)
[2023-11-29 08:55] LABS: ALT 164 U/L (16-63); AST 59 U/L (15-37); Alkaline Phosphatase 135 U/L (46-116); Anion Gap 7.1 mmol/L (3-11); BUN 19 mg/dL (7-18); Bilirubin, Total 1.67 mg/dL (0.2-1.0); C-Reactive Protein < 0.50 mg/dL (<or=0.5); CO2 26.9 mmol/L (21.0-32.0); CREATININE 0.9 mg/dL (0.70-1.30); Calcium 9.1 mg/dL (8.5-10.1); Chloride 103 mmol/L (98-107); Estimated GFR 93.03 (mL/min/1.73m2); Glucose 91 mg/dL (74-106); Lipase 36 U/L (16-77); Potassium 4.1 mmol/L (3.5-5.1); Sodium 137 mmol/L (136-145); Total Protein 7.4 g/dL (6.4-8.2)
== END 2023-11-29 08:35 | disposition home or self-care (01) ==
PROVIDERS: PCP Nurse Practitioner Family; Visit Provider Surgery
DX: K80.20 Calculus of gallbladder without cholecystitis without obstruction (principal); K80.43 Calculus of bile duct with acute cholecystitis with obstruction
CPT/HCPCS: 36415; 80053; 83690; 85025; 86140

== ENCOUNTER 2023-11-29 10:02 | Outpatient (CLI) | payer MEDICARE, SELFPAY ==
--- NOTE | 2023-11-29 09:45 | DI.MRI_ITS ---
Exam(s) MR ABDOMEN WO EXAM: MR ABDOMEN WO CLINICAL HISTORY: Biliary Obstruction, Calculus of GB w/acute cholecystitis w/obstruction, TECHNIQUE: Multiplanar multisequence MRI was performed with both pre and post contrast infused seque nces. Contrast injected sequences were performed following IV injection of cc of Dotarem. COMPARISON: US US ABDOMEN LIMITED from 11/28/2023 FINDINGS: VISUALIZED LUNG BASES: No pleural effusions There is no ascites. LIVER: There 2 similar appearing lesions in the liver, 1 in each lobe. Well-defined and slightly lob ulated and T2 bright. However, these are difficult to assess accurately without IV contrast but have the appearance of probable benign cysts or hemangiomas. The lesion in the superior aspect of the ri ght hepatic lobe measures 1.6 x 1 point 3 cm. The slightly smaller lesion in the left hepatic lobe m easures 1.4 x 1.3 cm BILIARY: The gallbladder is moderately distended and contains numerous gallstones of varying size by measuring up to 1.8 by 1.4 cm. The gallbladder wall does not appear edematous and there is no perich olecystic fluid. CBD is slightly prominent measuring 8-9 mm above the pancreas. In the pancreatic h ead there is CBD measures 6-7 mm. There is no evidence of obvious mass in the CBD. However, the MRC P images reveal a small calculus in the lower CBD measuring 4 mm. PANCREAS: There is no evidence of pancreatic mass nor dilatation of the pancreatic duct.No evidence o f peripancreatic fluid collections. SPLEEN: There is mild splenomegaly. Craniocaudal measurement of the spleen is 14.2 cm. There are no intrasplenic lesions evident.Splenic and portal veins are patent ADRENALS: There are no significant adrenal masses. KIDNEYS: There are multiple benign cysts in the kidneys. Largest cyst in left kidney is in the super ior pole and measures 3.3 x 2.9 cm. The largest cyst in the right kidney is located in the medial co rtex just below the renal pelvis and measures 3.3 by 3.5 cm. There are no solid renal masses. No hy dronephrosis.No perinephric fluid collections. ABDOMINAL AORTA: Not enlarged and there is no significant para-aortic adenopathy. ANTERIOR ABDOMINAL WALL/GI: There is no evidence of significant anterior abdominal wall hernia in the field of view of this study.Is no evidence of obvious bowel obstruction. OSSEOUS: There are no lytic osseous lesions in the field of view of this study. IMPRESSION: 1. There are multiple faceted gallstones within the gallbladder lumen and the gallbladder is moderate ly distended. There is also a solitary small 4 mm calculus in the lower CBD noted on the MRCP images , implying choledocholithiasis. The CBD is mildly dilated, measuring up to 8 mm. The gallbladder i s moderately distended but does not appear edematous and there is no pericholecystic fluid. 2. There 2 benign lesions in the liver which are difficult to assess accurately without IV contrast b ut are probably hemangiomas or cysts. These can be restudied in the near future with IV contrast MRI for added specificity. 3. No abnormal findings in the pancreas. 4. Mild splenomegaly noted. 5. There are multiple benign cysts in both kidneys with measurements as above. There are no solid r enal masses. No hydronephrosis. DATA REPOSITORY:
--- NOTE | 2023-11-29 16:27 | DI.VRAD_ITS ---
PROCEDURE INFORMATION: Exam: MR Abdomen Without Contrast, Biliary System Exam date and time: 11/29/2023 3:30 PM Age: 68 years old Clinical indication: Other: Biliary obstruction TECHNIQUE: Imaging protocol: MR of the abdomen without contrast. Exam focused on the biliary system and pancreatic ducts. Routine 3D-MRCP images were acquired and processed without radiologist supervision. COMPARISON: CT ABDOMEN PELVIS W 09/03/2018 10:50 AM FINDINGS: Liver: Small simple cysts and hemangioma in the liver. Gallbladder and biliary ducts: Multiple calcified gallstones are present. No wall thickening or pericholecystic fluid. 4 mm filling defect in the distal common bile duct suspicious for a stone. The common duct measures 6 mm. Pancreas: Unremarkable. No ductal dilation. Kidneys: There are multiple simple renal cysts. There is no hydronephrosis. Intraperitoneal space: No fluid collection. IMPRESSION: 4 mm stone in the distal common bile duct. No evidence of acute cholecystitis. Dictated and Authenticated by: Deana Goins MD. Ordering:PATRICIA Barber MD
== END 2023-11-29 10:22 ==
LOC: DI 10:02
PROVIDERS: PCP Nurse Practitioner Family; Visit Provider Surgery
DX: K80.20 Calculus of gallbladder without cholecystitis without obstruction (principal)
CPT/HCPCS: 74181

== ENCOUNTER 2023-12-02 14:41 | Outpatient (CLI) | payer MEDICARE, SELFPAY ==
[2023-12-02 15:06] LABS: WBC 6.21 10^3/uL (4.4-10.8)
[2023-12-02 15:20] LABS: ALT 115 U/L (16-63); AST 44 U/L (15-37); Albumin 4.2 g/dL (3.4-5.0); Alkaline Phosphatase 143 U/L (46-116); Bilirubin, Direct 0.4 mg/dL (0.0-0.2); Bilirubin, Total 1.76 mg/dL (0.2-1.0); Lipase 40 U/L (16-77); Total Protein 7.8 g/dL (6.4-8.2)
== END 2023-12-02 14:42 | disposition home or self-care (01) ==
LOC: LBO 14:41
PROVIDERS: PCP Nurse Practitioner Family; Visit Provider Surgery
DX: K80.43 Calculus of bile duct with acute cholecystitis with obstruction (principal); K80.51 Calculus of bile duct without cholangitis or cholecystitis with obstruction; K57.90 Diverticulosis of intestine, part unspecified, without perforation or abscess without bleeding; K42.9 Umbilical hernia without obstruction or gangrene; Z98.890 Other specified postprocedural states; Z87.19 Personal history of other diseases of the digestive system
CPT/HCPCS: 36415; 80076; 83690; 85048

== ENCOUNTER 2023-12-24 10:19 | Day surgery (SDC) | payer MEDICARE, SELFPAY ==
--- NOTE | 2023-12-23 09:49 | PDOC.DSDIS_ITS ---
Date of service: 12/24/23 Time of Service: 14:33 Discharge Plan Disposition Patient Disposition: Home Condition: Good Discharge Details Reason For Visit: ric angel Attending Provider: Elisabeth Phan Primary Care Provider: Fifi Negron Home Meds and New Rx's Prescriptions: New ondansetron 4 mg tablet,disintegrating 4 mg PO Q8H PRN4 Days Qty: 10 0RF tramadol 50 mg tablet 50 mg PO Q4H PRNQty: 14 0RF Continued ibuprofen 200 mg Tablet 400 mg PO PRN PRN acetaminophen [Tylenol] 325 mg capsule 650 mg PO Q6H PRN (Reason: fever or pain) Qty: 30 0RF Discharge Instructions Additional Instructions: Care after Gallbladder Surgery -Pain control: ?For the first 72 hours after surgery, take you pain meds continuously and not just when you have pain.?? Alternate Tylenol 1000mg by mouth every 8 hours, and Ibuprofen 600mg every 6 hours.? Make sure you take ibuprofen with food and not on an empty stomach.? ??Use the tramadol for breakthrough pain- pain that is greater than a 7. ?- Use ICE! Ice really helps to keep the swelling down, and swelling causes pain. ??Twenty minutes on, and then off, continuously for the first 72hours.? Af ter the first 72hrs, you can just use the Tylenol, ibuprofen, and ice, when you have pain.?? If you are taking narcotic pain medication, follow the instructions on the label and do not drive. Pain medications can make you very constipated. Make sure you are moving your bowels daily. If not, take Miralax, - Anesthesia makes you very constipated.? Take a dose of milk of magnesia the morning after surgery. ? Use an ice bag for the first 72 hours. This helps to decrease swelling, which causes pain. It is normal to be more sore/painful and swollen towards the end of the day and first thing in the morning. ? Gallbladder surgery can make you very nauseated; use Zofran for nausea, for the first 24 hours. The nausea generally stops after 24 hours. ? Use Miralax ?to prevent constipation (this is a particular side effect of pain medication and anesthesia). Do not allow yourself to become constipated. ? Avoid fatty or greasy foods; introduce these slowly, with care, after about 1 month. High-fat foods include: ? Foods that are fried, like Hungarian fries and potato chips ? High-fat meats, such as ferraro, bologna, sausage, ground beef, and ribs, pork products ? High-fat dairy products, such as cheese, ice cream, cream, whole milk, and sour cream ? Pizza ? Foods made with lard or butter ? Creamy soups or sauces ? Meat gravies ? Chocolate ? Oils, such as palm and coconut oil ? Skin of chicken or turkey ? Nuts and nut butters ? Avocadoes ? Start out eating very small, bland amounts of food. Do not take pain pills on an empty stomach. - You will notice purple discoloration around the incisions.? This is the ?skin glue?.? This will wear off on its own.? It is OK to shower after 24hrs.? You do not need to cover the incisions. -You should walk frequently, gradually, increasing the distance. You may climb stairs, just go slowly. ? Do not go swimming or sit in a hot tub for two weeks. ? There are no stitches to remove. ? Do not drive your car x72hrs and then only if you have no pain and can move freely. Do not drive if you are taking pain narcotic pain medications. ? You may resume sexual activity whenever pain and soreness subside, usually in 2 weeks. ? Do no lift anything over 5 lbs. for two weeks. ? You may return to work in one week, or when you feel able, provided you do not have to do any heavy lifting or prolonged standing. ? You should return to Dr. Phan?s office for a post-op appointment about two weeks after surgery. A follow-up should have been scheduled for you already.? If there is not, please call the Surgical Clinic at: [phone] to schedule an appointment. My Medications for pain and nausea are: Tylenol/ibuprofen ?and ultram- for severe pain ?and Zofran-nausea When to Call the Office: ? If the incision becomes red or swollen, or there is more than a little drainage from it. ? If you develop a temperature higher than 100.5 F. ? If your eyes turn yellow ? Vomiting and can?t keep fluids down Activity:: see above Remove Dressings/Wound Care:: 24 hours Shower/Bathe:: 24 hours Diet:: see above Discharge Orders Discharge Orders: Discharge Order (Routine); Ordered 12/23/23 Ordered By: Elisabeth Phan DS: Diagnosis Discharge Diagnosis (1) Choledocholithiasis with acute cholecystitis with obstruction: Status: Acute (2) Choledocholithiasis with obstruction: Status: Acute (3) Diverticulosis: Status: Acute (4) History of ventral hernia repair: Status: Acute (5) Cholelithiasis: Asessment and Plan: The patient is doing well post-op from their lap stanley.? They are having no nausea or vomiting. They are tolerating liquids and a snack. The pt is not having any chest pain or SOB.? Their pain is adequately controlled. They have been able to urinate.? ?HEENT:? no eye pain/drainage/redness/swelling. Mild sore throat ?Cardio- NSR, no chest pain, BP stable- see VS record ?Pulm: no sob or productive cough. No hemoptysis ?Incision- dressing is c/d/i w/ no excessive bleeding or drainage ?I discussed with the patient the findings at the time of surgery and the patient?s progress. ?We reviewed expectations at home; what the patient could expect for recovery time, and in the post-operative period.? We discussed the importance of walking to avoid blood clots and pneumonia.? We discussed and reviewed the patient's post-operative wound care and dressing needs.?? We reviewed their step-butler pain management plan, Rx called to the pharmacy of their choice.? We reviewed activity and limitations-see discharge instructions. We reviewed warning signs, and when to seek medical attention- see d/c instructions.?? Patient was given a postoperative follow-up appointment. Patient verbalized understanding of their postoperative instructions, how do to take care of themselves and their incision, and the pain management plan. Please see discharge instructions.?
--- NOTE | 2023-12-23 10:05 | ROE_ITS ---
Date of service: 12/24/23 Time of Service: 14:20 Operative Note Operative Note DATE OF PROCEDURE: 12/24/23 PRE-OP DIAGNOSIS: acute on chronic cholecystitis/cholelithiasis POST-OP DIAGNOSIS: same PROCEDURE: lap stanley SURGEON: Elisabeth Dunn STAFF NURSE ICU RESOURCE TEAM: Valeria Sarabia ANESTHESIA TYPE: Local By Surgeon and General LMA/ETT Refer to Anesthesia Record ESTIMATED BLOOD LOSS: 50 PATHOLOGY: other COMPLICATIONS: None Patient was transported to: PACU Patient's condition: stable Procedure Description: The pt is seen at the request of there PCP regarding acute on chronic cholecystitis, cholelithiasis. The pt has failed outpt conservative medical measures and is here today for laparoscopic cholecystectomy. Informed consent was obtained, explaining risks and benefits of the procedure including but not limited to bleeding, infection, pneumonia, blood clots, possible damage to bowel, bladder, blood vessels, bile ducts, possible open procedure, complications of general anesthesia and other unforetold complications. PROCEDURE: The patient agrees and is brought to the operative room suite and placed in supine position. Pt receives IV ICG preOp to aid w/ bile duct visualization.? Anesthesia was administered per the Department of Anesthesia. The patient did receive IV antibiotics. NG tube and Mckinley catheter are placed. The patient was prepped and draped in the usual sterile fashion using DuraPrep scrub solution. Pause for the cause was done. 20 mL of 1% buffered lidocaine was used for local anesthetization. A stab incision was made in the umbilicus and the Verres inserted. Drop test was positive and insufflation was begun. When 15 mm of pressure was noted on the monitor, the Veress was removed and #5 port inserted. The camera was inserted through the port and shows no damage to underlying structures. A 10 mm port was then placed in the epigastric position under direct visualization following creation of local field blocks as well as two 5 mm ports in the right upper quadrant. The camera was moved to one of the secondary ports so we could view the umbilical trocar site, and there is are no hernias or adhesions. The omentum encased the gallbladder. This is taken down with a combination of sharp and blunt dissection. Electrocautery and clips were used to provide hemostasis. The gallbladder fundus was grasped and retracted towards the right shoulder. Infundibulum was grasped and retracted laterally. The hepat- duodenal ligament is entered. The cystic duct and artery are dissected out and the most inferior portion of the gallbladder plate is removed from the liver and the critical view of safety was obtained after clearing away all fatty material. Endo Clips were placed across the duct and artery and these structures are divided. The remainder of the gallbladder was excised from the liver bed. The gallbladder was placed in a bag and brought out. Examination of the gallbladder shows indeed the cystic duct and artery to have been divided. The remainder of the abdomen was copiously irrigated with a liter of saline. All saline is removed. There is no bleeding or bile leakage from the liver bed or the clips sites. Floseal was placed in the liver bed to facilitate hemostasis. We Did have to enlarge the 10 mm port in order to facilitate removal of the gallbladder. Peritoneum and fascia are closed with 0 Vicryl in interrupted fashion. All ports and instruments are removed. SPonge and needle counts are correct. Pneumoperitoneum is evacuated and the port sites are monitored to make sure there is no bleeding at the time of desufflation. ??Port sites are irrigated and the skin is closed with 4-0 Monocryl in a running subcuticular fashion. Skin glue sterile dressings are applied. The patient tolerated the procedure well without complications, transferred to the recovery room in stable condition. ELISABETH DUNN, DO
[2023-12-24] VITALS (35 sets, daily range): BP systolic 121–167; BP diastolic 61–101; PULSE 50–61; RESP 10–24; TEMP 36–36.4; O2SAT 92–100; BMI 27.1
--- NOTE | 2023-12-24 10:05 | ANES.PREOP_ITS ---
General Info Date of Service Date Performed: 12/24/23 Height: 5 ft 9 in Weight: 83.518 kg Body Mass Index (BMI): 27.1 Surgical Procedure: Operation Date: 12/24/23 12:40 Proposed Procedure Side Surgeon p Cholecystectomy Laparoscopic, Possible Open Elisabeth Phan, Meds Allergies and Home Medications Allergies Allergy/AdvReac Type Severity Reaction Status Date / Time levofloxacin Allergy Severe Diarrhea Verified 12/24/23 10:43 [facility] [place] Soap AdvReac Hives Uncoded 12/24/23 10:43 Home Medication ?Medication ?Instructions ?Recorded acetaminophen 325 mg capsule 650 mg (2 x 325 mg) PO Q6H PRN 09/10/18 (Tylenol) fever or pain #30 caps ibuprofen 200 mg tablet 400 mg PO PRN PRN 09/10/18 ondansetron 4 mg disintegrating 4 mg PO Q8H PRN 4 days #10 tabs 12/23/23 tablet tramadol 50 mg tablet 50 mg PO Q4H PRN #14 tabs 12/23/23 Current Visit Medications: Current Medications Generic Name Dose Route Start Last Admin Trade Name Freq PRN Reason Stop Dose Admin Acetaminophen 1,000 mg 12/24/23 06:00 Acetaminophen 500 Mg Tab PO 01/22/24 23:59 PREOP CHRIS Gabapentin 600 mg 12/24/23 06:00 Gabapentin 300 Mg Cap PO 01/22/24 23:59 PREOP CHRIS Ringer's Solution 1,000 mls @ 80 mls/hr 12/24/23 06:00 IV 01/22/24 23:59 INFUSION CHRIS Cefazolin Sodium/Dextrose 2 gm in 50 mls @ 100 mls/hr 12/24/23 06:00 Ancef Duplex IVPB 01/22/24 23:59 PREOP CHRIS Metronidazole 500 mg in 100 mls @ 100 mls/hr 12/24/23 06:00 Flagyl IVPB 12/24/23 23:59 PREOP CHRIS Ondansetron HCl 4 mg/ Sodium 52 mls @ 200 mls/hr 12/23/23 09:48 Chloride IVPB 01/22/24 09:47 Q6H PRN PRN IV Miscellaneous Supplies 1 each 12/24/23 06:00 Iv Access IV 01/22/24 23:59 DIRECTED CHRIS Indocyanine Green 5 mg 12/24/23 06:00 Indocyanine Green 25 Mg Vial IVP 12/24/23 23:59 DIRECTED CHRIS Morphine Sulfate 2 mg 12/23/23 09:48 Morphine 4 Mg/Ml Syr IVP 01/22/24 09:47 Q1H PRN PRN Sodium Chloride 0 ml 12/24/23 06:00 Normal Saline Flush 10 Ml Syr IV 01/22/24 23:59 PRN PRN Sodium Chloride 0 ml 12/24/23 06:00 Normal Saline 10 Ml Vial IJ 01/22/24 23:59 DIRECTED PRN Sterile Water 0 ml 12/24/23 06:00 Water,Injection,Sterile 10 Ml Vial IJ 01/22/24 23:59 DIRECTED PRN Tramadol HCl 50 mg 12/23/23 09:48 Tramadol 50 Mg Tab PO 01/22/24 09:47 Q6H PRN PRN Pain PFSH Active Problems Active Problems: Problem Status Onset Code Choledocholithiasis with obstruction Acute K80.51 Choledocholithiasis with acute cholecystitis with obstruction Acute K80.43 Umbilical hernia Acute K42.9 Spermatocele of epididymis, multiple Acute N43.42 Diverticulosis Acute K57.90 History of ventral hernia repair Acute ~09/10/18 Z98.890, Z87.19 S/P colonoscopy Acute ~09/15/18 Z98.890 Medical History Medical History Kidney calculi pt. reports he passed them on his own Arthritis Cyst of testis Pt. states he has cyst bilaterally Pancolonic diverticulosis Cholelithiasis Umbilical hernia Surgical History Surgical History History of hernia repair Inguinal hernia repair approximately 1988, right side Tobacco Smoking/Tobacco Use Status: Never Alcohol Alcohol Intake: never Substance Use Substance use type: does not use Vital Signs and Lab Results Vital Signs Most Recent Vital Signs in EMR: Temp Pulse Resp BP Pulse Ox 36.1 C L 56 L 16 127/80 98 12/24/23 10:26 12/24/23 10:26 12/24/23 10:26 12/24/23 10:26 12/24/23 10:26 Lab Results Blood Type / Crossmatch: No Data to Display Complete Blood Count: White Blood Count 6.21 10^3/uL (4.4-10.8) 12/02/23 15:00 Red Blood Count 4.65 10^6/uL (4.36-5.78) 11/29/23 08:26 Hemoglobin 14.0 g/dL (13.5-17.5) 11/29/23 08:26 Hematocrit 39.5 % (40.0-50.0) L 11/29/23 08:26 Platelet Count 172 10^3/uL (130-400) 11/29/23 08:26 Complete Metabolic Panel: Sodium 137 mmol/L (136-145) 11/29/23 08:26 Potassium 4.1 mmol/L (3.5-5.1) 11/29/23 08:26 Chloride 103 mmol/L (98-107) 11/29/23 08:26 Carbon Dioxide 26.9 mmol/L (21.0-32.0) 11/29/23 08:26 BUN 19 mg/dL (7-18) H 11/29/23 08:26 Creatinine 0.9 mg/dL (0.70-1.30) 11/29/23 08:26 Est GFR (CKD-EPI 2020) 93.03 (mL/min/1.73m2) 11/29/23 08:26 Calcium 9.1 mg/dL (8.5-10.1) 11/29/23 08:26 Albumin 4.2 g/dL (3.4-5.0) 12/02/23 15:00 Glucose 91 mg/dL (74-106) 11/29/23 08:26 C-Reactive Protein < 0.50 mg/dL (<or=0.5) 11/29/23 08:26 Liver Function Panel: Alanine Aminotransferase (ALT/SGPT) 115 U/L (16-63) H 12/02/23 15:00 Aspartate Amino Transf (AST/SGOT) 44 U/L (15-37) H 12/02/23 15: 00 Coagulation Panel: No Data to Display Cardiac Panel: No Data to Display Arterial Blood Gas: No Data to Display Venous Blood Gas: No Data to Display Pancreas Panel: Lipase 40 U/L (16-77) 12/02/23 15:00 Thyroid Panel: No Data to Display Infectious Disease: No Data to Display Blood Cultures: No Data to Display Toxicology Panel: No Data to Display Anesthesia Assessment and Plan Anesthesia History Personal History: No History of Anesthesia Complications Family History: No Family History of Anesthesia Complications Exercise Tolerance Exercise Tolerance: Metabolic Equivalents>4 Cardiac & Pulmonary Exam Cardiac Exam: Normal S1/S2 Heart Sounds Pulmonary Exam: Clear Bilateral Breath Sounds Implantable Cardiac Device Does patient have a Pacemaker or an ICD?: No Airway Exam Known Difficult Airway: No Mallampati Class: 2 Mouth Opening: Normal (> 3cm) Thyromental Distance: Greater than 3 cm Facial Hair: Full Castellanos Neck Range of Motion: Full ROM Neck Circumference: Normal Teeth Condition: Normal Dentition ASA Classification ASA Score: ASA 2 Emergency Case?: No NPO Status NPO Status: NPO Clears >2 hours, Solids >8 hours Anesthesia Plan Resuscitation Status: Full Code Anesthesia Technique: General Anesthesia Airway Planned: Endotracheal Tube Monitors Used: Standard Monitors Preoperative Comments:: 68 yo male with choledocholithiasis underwent [place] [facility] [place] now here for lap stanley. Sig PMHx: never smoker Previous Anes: - spermatocele, LMA 4, no issues. - colo, prop, natural airway, no issues. - hernia, fent/midaz, prop gtt, LMA 5. dexamethasone/zofran/diphenhydramine/scop given.
[2023-12-24] MEDS: Gabapentin 300 MG CAP 600 MG PO (10:44)
[2023-12-24] MEDS: Acetaminophen 500 MG TAB 1000 MG PO (10:44)
[2023-12-24] MEDS: Lactated Ringers 1,000 ML 80 ML IV (10:54)
[2023-12-24] MEDS: Water,Injection,Sterile 10 ML VIAL IJ (10:55)
[2023-12-24] MEDS: Indocyanine green 25 MG VIAL 5 MG IVP (10:56)
[2023-12-24] MEDS: ceFAZolin 2 GM/50 ML BAG IVPB (12:33)
[2023-12-24] MEDS: metroNIDAZOLE 500 MG/100 ML BAG 100 MG IVPB (12:47)
[2023-12-24] MEDS: Bupivacaine 0.25% Pres-Free W/EPI 30 ML VIAL (13:13)
--- NOTE | 2023-12-24 13:41 | GB_PTH ---
PATIENT: Kirby Boyer LOC: [facility] U#:[id number] AGE/SX: 68/M ROOM: RE12/24/[address]: Elisabeth Phan : 1955 BED: DIS: 12/24/2023 SPEC #: [id number] RECD: 12/24/23 16:57 STATUS: MACK REQ #: [id number] SERGIO: 12/24/23 13:[address]: Elisabeth Phan DEPT: Surgical Specimen RECD BY: Dominique Casiano ENTERED: 12/24/23 16:57 SP TYPE: GB OTHR DR: Fifi Whitman Tissues: 1 - GALLBLADDER Procedures: GROSS AND MICRO LEVEL 3 Comments: [id number]
--- NOTE | 2023-12-24 14:50 | W.ANESPOSTOP ---
Postoperative Evaluation Date, Time and Location Date Performed: 12/24/23 Time Performed: 14:51 Patient Location: PACU Vital Signs Most Recent Imported Vital Signs: Most Recent Vital Signs Temp Pulse Resp BP Pulse Ox 36.3 C L 55 L 11 L 161/101 H 98 12/24/23 14:40 12/24/23 14:41 12/24/23 14:45 12/24/23 14:41 12/24/23 14:45 Pain Score Most Recent Pain Score: Most Recent Pain Score Pain Level 0 12/24/23 14:40 Assessment Mental Status: Arousable with meaningful communication Airway and Respiratory Function: Patent airway with normal (patient baseline) respiratory exam Cardiovascular Function: Hemodynamically Stable Hydration Status: Adequately Hydrated Nausea & Vomiting: No Nausea or Vomiting Pain: Pain is Moderate or Severe Postoperative Pain Management: Pain being addressed with medication Peripheral Nerve Block: Patient did not receive a nerve block
[2023-12-24] MEDS: fentaNYL 100 MCG/2 ML VIAL IVP ×3 (15:00→15:15)
[2023-12-24] MEDS: Ketorolac 15 MG/ML VIAL (15:30)
== END 2023-12-24 16:55 | disposition home or self-care (01) ==
PROVIDERS: PCP Nurse Practitioner Family; Visit Provider Surgery
PROC: 0FT44ZZ Resection of Gallbladder, Percutaneous Endoscopic Approach (ICD-10-PCS; CPT 47562; principal; 2023-12-24 12:30)
DX: K80.10 Calculus of gallbladder with chronic cholecystitis without obstruction (principal)
CPT/HCPCS: 47562; 87077; 87070; 87205; 88304; J0690; J1100; J1836; J1885; J1920; J2404; J2405; J2704; J3010; J3475

== ENCOUNTER → 2024-01-06 14:08 | Outpatient (BNVA) | payer MEDICARE, SELFPAY | PROVIDERS: PCP Nurse Practitioner Family; Referring Provider Nurse Practitioner Family; Visit Provider Surgery | DX: Z48.815 Encounter for surgical aftercare following surgery on the digestive system (principal); Z90.49 Acquired absence of other specified parts of digestive tract; K80.43 Calculus of bile duct with acute cholecystitis with obstruction; K80.51 Calculus of bile duct without cholangitis or cholecystitis with obstruction ==

== ENCOUNTER 2024-05-29 14:29 | Outpatient (REF) | payer MEDICARE, SELFPAY ==
[2024-05-29 16:39] LABS: ALT 27 U/L (16-63); AST 22 U/L (15-37); Albumin 4.1 g/dL (3.4-5.0); Alkaline Phosphatase 103 U/L (46-116); Anion Gap 9.9 mmol/L (3-11); BUN 18 mg/dL (7-18); Bilirubin, Total 1.3 mg/dL (0.2-1.0); CO2 27.1 mmol/L (21.0-32.0); CREATININE 0.9 mg/dL (0.70-1.30); Calcium 8.9 mg/dL (8.5-10.1); Calculated LDL 96 mg/dL (<100); Chloride 107 mmol/L (98-107); Cholesterol 164 mg/dL (<200); Estimated GFR 93.03 (mL/min/1.73m2); Glucose 87 mg/dL (74-106); HDL Cholesterol 48 mg/dL (>or=40); Potassium 4.2 mmol/L (3.5-5.1); Sodium 144 mmol/L (136-145); Total Protein 7.2 g/dL (6.4-8.2); Triglyceride 102 mg/dL (<150)
[2024-05-29 23:01] LABS: PSA, Screening 0.5 ng/mL (<=4.5)
[2024-06-01 13:27] LABS: Hepatitis C Ab w Rflx HCV PCR Negative (Negative)
== END 2024-05-29 14:30 | disposition home or self-care (01) ==
LOC: NCHCN 14:29
PROVIDERS: PCP Nurse Practitioner Family; Visit Provider Nurse Practitioner Family
DX: R39.9 Unspecified symptoms and signs involving the genitourinary system (principal); Z13.220 Encounter for screening for lipoid disorders; Z00.00 Encounter for general adult medical examination without abnormal findings
CPT/HCPCS: 80053; 80061; 84153; 86803; 87086